=== PATIENT | male | born 1990 | race Caucasian/White ===

== ENCOUNTER 2017-01-09 14:20 | Emergency (ER) | payer SELFPAY ==
[~2017-01-09] VITALS: Ht 177.8 cm; Wt 77.1 kg
[2017-01-09 14:25] VITALS: BP 125/69
--- NOTE | 2017-01-09 15:51 | NUR ---
Patient ambulated to bed 05.
--- NOTE | 2017-01-09 15:52 | NUR ---
26/M BIB FAMILY C/O LAC WOUND AT LEFT EYEBROW WHILE PLAYING SOCCER; DENIES LOC. PATIENT DENIES N/V/D; SKIN IS PINK/WARM/DRY; AAOX4 WITH EVEN AND STEADY GAIT; LUNGS CLEAR BL; HR EVEN AND REGULAR; PT DENIES ANY FEVER, CP, SOB, OR COUGH AT THIS TIME; PATIENT STATES PAIN OF 5/10 AT THIS TIME; VSS; PATIENT POSITIONED FOR COMFORT; HOB ELEVATED; BEDRAILS UP X2; BED DOWN. ER MD MADE AWARE OF PT STATUS.
--- NOTE | 2017-01-09 15:56 | NUR ---
ER MD DR HERRERA EVALUATING PT AT BEDSIDE
[2017-01-09] MEDS ORDERED: LIDOCAINE 1% ED 50 ML ONE (16:04)
[2017-01-09] MEDS ORDERED: LIDOCAINE 1% 500 MG/50 ML VIAL INJ ONE (16:10)
[2017-01-09 17:03] VITALS: BP 119/68
--- NOTE | 2017-01-09 17:03 | NUR ---
Patient discharged with v/s stable. Written and verbal after care instructions given and explained. Patient alert, oriented and verbalized understanding of instructions. Ambulatory with steady gait. All questions addressed prior to discharge. ID band removed. Patient advised to follow up with PMD. Rx of BACTRIM DS & MOTRIN given. Patient educated on indication of medication including possible reaction and side effects. Opportunity to ask questions provided and answered.
== END 2017-01-09 17:03 | disposition home or self-care (01) ==
LOC: MED 14:20
DX: S01.81XA Laceration without foreign body of other part of head, initial encounter (principal); R03.0 Elevated blood-pressure reading, without diagnosis of hypertension; W50.0XXA Accidental hit or strike by another person, initial encounter; Y93.66 Activity, soccer; Y92.322 Soccer field as the place of occurrence of the external cause; Y99.8 Other external cause status
CPT/HCPCS: 12013; 90471; 90715; 99283; J2001